=== PATIENT | female | born 1975 | race Caucasian/White ===

== ENCOUNTER 2017-07-10 00:58 | Emergency (ER) | payer BC, OTHER ==
[~2017-07-10] VITALS: Ht 170.2 cm; Wt 90.7 kg
[~2017-07-10 00:58] MED LIST: APAP500 PO; COUMADIN 2.5MG2.5 M1; ELAVIL PO; ENOXAPARIN80 MG/0.8 SC; IRON325 PO; LOESTRIN FE 1-1 EACH; METAXALONE800 MG; MOBIC15 MG PO; NEXIUM 40 MG CA40 M1 PO; NEXIUM40 MG; NORCO 5-325 TA1 EACH PO; PROZAC 20 MG20 M1 PO; SIMVASTATIN20 MG PO
[2017-07-10] MEDS ORDERED: EFFEXOR 5050 MG/1 T1 PO (01:05)
[2017-07-10] MEDS ORDERED: VERAPAMIL HCL40 MG (01:05)
[2017-07-10] MEDS ORDERED: REQUIP 1 MG TABL1 M1 PO (01:06)
[2017-07-10] MEDS ORDERED: OXYBUTYNIN 5 MG5 M2 PO (01:06)
[2017-07-10] MEDS ORDERED: IMITREX5 MG NASAL (01:08)
[2017-07-10] MEDS ORDERED: COMPAZINE10 MG PO (03:30)
[2017-07-10] MEDS ORDERED: MECLIZINE HCL25 MG PO (03:30)
[2017-07-10 04:39] VITALS: BP 108/59
== END 2017-07-10 04:32 | disposition home or self-care (01) ==
LOC: ER 00:58
DX: G43.901 Migraine, unspecified, not intractable, with status migrainosus (principal); F17.210 Nicotine dependence, cigarettes, uncomplicated; F10.99 Alcohol use, unspecified with unspecified alcohol-induced disorder

== ENCOUNTER 2017-11-06 05:07 | Emergency (ER) | payer BC, OTHER ==
[~2017-11-06] VITALS: Ht 170.2 cm; Wt 95.3 kg
[~2017-11-06 05:07] MED LIST changes: +COMPAZINE10 MG PO; +EFFEXOR 5050 MG/1 T1 PO; +IMITREX5 MG NASAL; +MECLIZINE HCL25 MG PO; +OXYBUTYNIN 5 MG5 M2 PO; +REQUIP 1 MG TABL1 M1 PO; +VERAPAMIL HCL40 MG
[2017-11-06] MEDS ORDERED: ZOCOR20 MG PO (05:32)
[2017-11-06] MEDS ORDERED: ULTRAM 50MG TAB50 MG PO (07:16)
== END 2017-11-06 07:44 | disposition home or self-care (01) ==
LOC: ER 05:07
DX: S62.636A Displaced fracture of distal phalanx of right little finger, initial encounter for closed fracture (principal); S00.11XA Contusion of right eyelid and periocular area, initial encounter; G43.909 Migraine, unspecified, not intractable, without status migrainosus; Z90.710 Acquired absence of both cervix and uterus; Z90.49 Acquired absence of other specified parts of digestive tract; F17.210 Nicotine dependence, cigarettes, uncomplicated; Y08.89XA Assault by other specified means, initial encounter; Y93.89 Activity, other specified; Y92.89 Other specified places as the place of occurrence of the external cause; Y99.8 Other external cause status